=== PATIENT | female | born 1950 | race Two or more races ===

== ENCOUNTER 2018-12-21 08:34 | Outpatient (CLI) | payer OTHER ==
[~2018-12-21 08:34] MED LIST: ALTACE2.5 MG; METFORMIN HCL500 MG
== END 2018-12-21 17:00 | disposition home or self-care (01) ==
LOC: TOM 08:34
DX: N39.0 Urinary tract infection, site not specified (principal)
CPT/HCPCS: 74177; Q9965

== ENCOUNTER 2018-12-23 10:50 | Outpatient (CLI) | payer OTHER | END 2018-12-23 13:12 | disposition home or self-care (01) | LOC: EKG 10:50 | DX: I10 Essential (primary) hypertension (principal) ==

== ENCOUNTER 2018-12-28 23:26 | Emergency (ER) | payer OTHER ==
[~2018-12-28] VITALS: Ht 157.5 cm; Wt 64.9 kg
[2018-12-29] MEDS ORDERED: PERCOCET 5-3251 EACH PO (11:22)
[2018-12-29] MEDS ORDERED: KETO10TA2 PO (11:22)
== END 2018-12-29 12:37 ==
LOC: ER 23:26
DX: N20.0 Calculus of kidney (principal)

== ENCOUNTER → 2019-01-11 | Outpatient (CLI) | payer OTHER ==
[~2019-01-11] MED LIST changes: +KETO10TA2 PO; +PERCOCET 5-3251 EACH PO
== END | disposition home or self-care (01) ==
LOC: RAD 13:00
DX: N20.0 Calculus of kidney (principal)

== ENCOUNTER → 2019-02-02 | Outpatient (CLI) | payer OTHER | END | disposition home or self-care (01) | LOC: RAD 11:41 | DX: N20.0 Calculus of kidney (principal) ==

== ENCOUNTER 2019-03-03 11:33 | Outpatient (CLI) | payer OTHER | END 2019-03-03 11:35 | disposition home or self-care (01) | LOC: RAD 11:33 | DX: N20.0 Calculus of kidney (principal) ==

== ENCOUNTER → 2019-04-26 11:28 | Outpatient (CLI) | payer OTHER | END | disposition home or self-care (01) | LOC: LAB 11:28 | DX: N30.00 Acute cystitis without hematuria (principal) ==

== ENCOUNTER → 2019-04-26 | Outpatient (CLI) | payer OTHER | END | disposition home or self-care (01) | LOC: MAMO-SONO 09:55 | DX: Z12.31 Encounter for screening mammogram for malignant neoplasm of breast (principal); Z87.898 Personal history of other specified conditions; N60.21 Fibroadenosis of right breast; N60.22 Fibroadenosis of left breast ==